=== PATIENT | female | born 1995 | race Caucasian/White ===

== ENCOUNTER 2016-09-11 15:06 | Emergency (ER) | payer BC ==
[~2016-09-11] VITALS: Ht 160 cm; Wt 65.8 kg
--- NOTE | 2016-09-11 15:10 | Emergency Room Report ---
History of Present Illness General Chief Complaint: General Complaint Source: Patient, EMS Present Illness HPI 20 YOF presents with bilateral upper extremity numbness/tingling, nausea, chest pain, palpitations 90min after ingesting [employer] energy drink. has had before but never had these adverse effets. Denies fever/chills, headache, neck pain, SOB. Denies other drugs. Staying at rehab facility. Per EMS, initial HR was 150-160. Now 105. Allergies: Coded Allergies: No Known Allergies (Unverified , 09/11/16) Patient History Past Medical History: none Past Surgical History: none Pertinent Family History: none Social History: Denies: alcohol use, drug use, smoking Now: No Immunizations: UTD Reviewed Nursing Documentation: PMH: Agreed, PSxH: Agreed Nursing Documentation-PMH Past Medical History: No History, Except For Hx Asthma: Yes History Of Psychiatric Problem: Yes - PTSD, ANXIETY Hx Seizures: Yes Review of Systems All Other Systems: negative except mentioned in HPI Physical Exam Vital Signs Date Time Temp Pulse Resp B/P Pulse Ox O2 Delivery O2 Flow Rate FiO2 09/11/16 15:00 98.4 110 20 155/76 98 Room Air Sp02 EP Interpretation: reviewed, abnormal General Appearance: normal inspection, well appearing, no apparent distress, alert, GCS 15, non-toxic Head: normocephalic, atraumatic Eyes: bilateral eye EOMI, bilateral eye PERRL ENT: normal ENT inspection, hearing grossly normal, normal voice Neck: normal inspection, full range of motion, supple, no bony tend Respiratory: normal inspection, lungs clear, normal breath sounds, no respiratory distress, no retraction, no wheezing Cardiovascular #1: regular rate, rhythm, no edema Gastrointestinal: normal inspection, normal bowel sounds, non tender, soft, no guarding, no hernia Genitourinary: no CVA tenderness Musculoskeletal: normal inspection, back normal, normal range of motion, Danis' s Sign negative Neurologic: normal inspection, alert, oriented x3, responsive, hepatology physician III-XII nml as tested, speech normal Psychiatric: normal inspection, judgement/insight normal, mood/affect normal Skin: normal inspection, normal color, no rash Lymphatic: normal inspection Medical Decision Making Diagnostic Impression: Primary Impression: Caffeine toxicity Qualified Codes: T43.611A - Poisoning by caffeine, accidental (unintentional) , initial encounter ER Course Per research, 140mg caffeine in [employer] energy drink Patient's symptoms consistent with adverse effects Was hydrated, offered ativan but patient refused Feels much better after period of observation DC home Rhythm Strip Diag. Results EP Interpretation: yes Rate: 95 Rhythm: NSR, no PVC's, no ectopy Last Vital Signs Date Time Temp Pulse Resp B/P Pulse Ox O2 Delivery O2 Flow Rate FiO2 09/11/16 15:00 98.4 110 20 155/76 98 Room Air Status: improved Disposition: HOME, SELF-CARE SANTOS RENEE M.D. Sep 11, 2016 15:10
[2016-09-11] MEDS ORDERED: LORazepam Inj 2mg/ml 1ml IV ONE (15:15)
[2016-09-11] MEDS: LORazepam Inj 2mg/ml 1ml IV ONE ×2 (15:41→15:46)
[2016-09-11 15:47] VITALS: BP 144/72
[2016-09-11 17:03] VITALS: BP 144/72
== END 2016-09-11 17:05 | disposition home or self-care (01) ==
LOC: EDBD 15:06 → EMR 15:21
DX: T43.611A Poisoning by caffeine, accidental (unintentional), initial encounter (principal); X58.XXXA Exposure to other specified factors, initial encounter; Y93.9 Activity, unspecified; Y92.9 Unspecified place or not applicable; R07.9 Chest pain, unspecified; J45.909 Unspecified asthma, uncomplicated; F41.9 Anxiety disorder, unspecified
CPT/HCPCS: 96374; 96375; 99284; J2405